=== PATIENT | male | born 1970 | race Caucasian/White ===

== ENCOUNTER 2019-10-06 15:52 | Emergency (ER) | payer OTHER ==
[2019-10-06] MEDS ORDERED: Sodium Chloride 0.9% 1,000 ML IV STA (16:14)
[2019-10-06] MEDS ORDERED: Sodium Chloride 0.9% 10 ML Syringe FLUSH PRN (16:14)
[2019-10-06] MEDS ORDERED: Ondansetron 4 MG/2 ML SDV IVPUSH ONE (16:14)
[2019-10-06] MEDS ORDERED: HYDROmorphone 1 MG/ML Syringe IVPUSH ONE (16:15)
[2019-10-06] MEDS ORDERED: Ketorolac 30 MG/ML SDV IVPUSH ONE (16:15)
[2019-10-06] MEDS ORDERED: Clindamycin Phosphate 900 MG in Sodium Chloride 0.9% 100 ML IV ONE (16:17)
--- NOTE | 2019-10-06 16:50 | EDM.PDOC ---
ED HPI GENERAL MEDICAL PROBLEM - General Chief Complaint: ENT Problem Stated Complaint: SWOLLEN THROAT Time Seen by Provider: 10/06/19 16:05 Source of Information: Reports: Patient History Limitations: Reports: No Limitations - History of Present Illness INITIAL COMMENTS - FREE TEXT/NARRATIVE: The patient presents with left sided throat and neck pain. He says this all started about 4 days ago with a tooth infection in the left lower jaw. He denies having a fever. He says he cannot eat or drink anything because of the pain. He has no cough, congestion, runny nose, abdominal pain, nausea or vomiting. He has no health problems. He was seen at the clinic in [place] and sent here for further work up. They felt he may need a CT of his neck. He says he does have a headache. Onset: Gradual Duration: Day(s): (4) Location: Reports: Neck, Other (throat) Quality: Reports: Sharp Severity: Severe Improves with: Reports: None Worsens with: Reports: None Associated Symptoms: Reports: Headaches. Denies: Chest Pain, Cough, Fever/ Chills, Nausea/Vomiting, Shortness of Breath Treatments [employer]: Reports: Other (see below) Other Treatments [employer]: took about 12 aleve within 8 hrs Left Neck Pain Score (Numeric/FACES): 9 - Related Data Allergies Allergy/AdvReac Type Severity Reaction Status Date / Time No Known Allergies Allergy Verified 10/06/19 16:04 Home Meds: Home Meds . [No Known Home Meds] 10/06/19 [History] Past Medical History Musculoskeletal History: Reports: Other (See Below) Other Musculoskeletal History: 32 foot fall and broke both feet, and shattered pelvis; collar bone, wrist and knocked out all teeth Social & Family History - Tobacco Use Smoking Status *Q: Never Smoker - Caffeine Use Caffeine Use: Reports: Coffee - Recreational Drug Use Recreational Drug Use: No ED ROS ENT - Review of Systems Review Of Systems: See Below Constitutional: Reports: No Symptoms HEENT: Reports: Dental Pain, Throat Pain Respiratory: Reports: No Symptoms Cardiovascular: Reports: No Symptoms Endocrine: Reports: No Symptoms GI/Abdominal: Reports: No Symptoms : Reports: No Symptoms Musculoskeletal: Reports: Neck Pain (Left anterior neck) Skin: Reports: No Symptoms ED EXAM, ENT - Physical Exam Exam: See Below Exam Limited By: No Limitations General Appearance: Alert, No Apparent Distress Ears: Normal External Exam, Normal Canal, Normal TMs Nose: Normal Inspection Mouth/Throat: Other (Mild edema and erythema. Pain upon palpation and edema to the left lower jaw.) Head: Atraumatic, Normocephalic Neck: Other (Pain upon palpation with edema and pain to the left anterior neck) Respiratory/Chest: No Respiratory Distress, Lungs Clear, Normal Breath Sounds Cardiovascular: Regular Rate, Rhythm, No Edema, No Murmur GI/Abdominal: Soft, Non-Tender, No Organomegaly, No Mass Course - Vital Signs Last Recorded V/S: Last Vital Signs Temp 100.3 F 10/06/19 16:03 Pulse 96 10/06/19 16:03 Resp 20 10/06/19 16:03 BP 125/86 10/06/19 16:03 Pulse Ox 97 10/06/19 16:03 - Orders/Labs/Meds Orders: Active Orders 24 hr Category Date Time Status Peripheral IV Care [RC] . DIRECTED Care 10/06/19 16:14 Active Soft Tissue Neck w Cont [CT] Stat Exams 10/06/19 16:15 Taken CULTURE BLOOD [BC] Stat Lab 10/06/19 16:38 Received CULTURE BLOOD [BC] Stat Lab 10/06/19 16:45 Received CULTURE STREP A CONFIRMATION [] Stat Lab 10/06/19 16:16 Results STREP SCRN A RAPID W CULT CONF [] Stat Lab 10/06/19 16:16 Results Sodium Chloride 0.9% [Saline Flush] Med 10/06/19 16:14 Active 10 ml FLUSH ASDIRECTED PRN Blood Culture x2 Reflex Set [OM.PC] Stat Oth 10/06/19 16:16 Ordered ED Antiemetic Medication Reflex [OM.PC] Stat Oth 10/06/19 16:14 Ordered Peripheral IV Insertion Adult [OM.PC] Stat Oth 10/06/19 16:14 Ordered Medication Orders Sodium Chloride (Saline Flush) 10 ml FLUSH ASDIRECTED PRN PRN Reason: Keep Vein Open Last Admin: 10/06/19 17:06 Dose: 10 ml Labs: Laboratory Tests 10/06/19 10/06/19 10/06/19 Range/Units 16:10 16:10 16:38 WBC 18.28 H (4.23-9.07) K/mm3 RBC 4.73 (4.63-6.08) M/mm3 Hgb 14.3 (13.7-17.5) gm/dl Hct 41.7 (40.1-51.0) % MCV 88.2 (79.0-92.2) fl MCH 30.2 (25.7-32.2) pg MCHC 34.3 (32.2-35.5) g/dl RDW Std Deviation 40.8 (35.1-43.9) fL Plt Count 258 (163-337) K/mm3 MPV 9.2 L (9.4-12.3) fl Neut % (Auto) 87.7 H (34.0-67.9) % Lymph % (Auto) 3.7 L (21.8-53.1) % [place] % (Auto) 8.3 (5.3-12.2) % Eos % (Auto) 0 L (0.8-7.0) Baso % (Auto) 0.0 L (0.1-1.2) % Neut # (Auto) 16.04 H (1.78-5.38) K/mm3 Lymph # (Auto) 0.68 L (1.32-3.57) K/mm3 [place] # (Auto) 1.51 H (0.30-0.82) K/mm3 Eos # (Auto) 0.00 L (0.04-0.54) K/mm3 Baso # (Auto) 0.00 L (0.01-0.08) K/mm3 Manual Slide Review Abnormal smear Sodium 134 L (136-145) mEq/L Potassium 3.7 (3.5-5.1) mEq/L Chloride 100 (98-107) mEq/L Carbon Dioxide 24 (21-32) mEq/L Anion Gap 13.7 (5-15) BUN 14 (7-18) mg/dL Creatinine 1.0 (0.7-1.3) mg/dL Est Cr Clr Drug Dosing 88.38 mL/min Estimated GFR (MDRD) > 60 (>60) mL/min BUN/Creatinine Ratio 14.0 (14-18) Glucose 134 H (74-106) mg/dL Lactic Acid 0.7 (0.4-2.0) mmol/L Calcium 8.7 (8.5-10.1) mg/dL Total Bilirubin 1.0 (0.2-1.0) mg/dL AST 24 (15-37) U/L ALT 37 (16-63) U/L Alkaline Phosphatase 65 (46-116) U/L Total Protein 7.3 (6.4-8.2) g/dl Albumin 3.4 (3.4-5.0) g/dl Globulin 3.9 gm/dL Albumin/Globulin Ratio 0.9 L (1-2) Meds: Medications Generic Name Dose Route Start Last Admin Trade Name Frenori PRN Reason Stop Dose Admin Sodium Chloride 10 ml 10/06/19 16:14 10/06/19 17:06 Saline Flush FLUSH 10 ml ASDIRECTED PRN Administration Keep Vein Open Discontinued Medications Generic Name Dose Route Start Last Admin Trade Name Tana PRN Reason Stop Dose Admin Clindamycin Phosphate Confirm 10/06/19 17:06 10/06/19 17:19 Cleocin Administered 10/06/19 17:07 Not Given Dose 900 mg .ROUTE .STK-MED ONE Hydromorphone HCl 1 mg 10/06/19 16:15 10/06/19 16:35 Dilaudid IVPUSH 10/06/19 16:16 1 mg ONETIME ONE Administration Sodium Chloride 1,000 mls @ 1,000 mls/hr 10/06/19 16:14 10/06/19 16:28 Normal Saline IV 10/06/19 17:13 1,000 mls/hr .BOLUS STA Administration Clindamycin Phosphate 900 mg/ 106 mls @ 200 mls/hr 10/06/19 16:17 10/06/19 17 :19 Sodium Chloride IV 10/06/19 16:48 Not Given ONETIME ONE Clindamycin Phosphate 900 mg/ 50 mls @ 100 mls/hr 10/06/19 17:13 10/06/19 17: 19 Premix IV 10/06/19 17:42 100 mls/hr ONETIME ONE Administration Iopamidol 80 ml 10/06/19 16:53 10/06/19 17:07 Isovue-300 (61%) IVPUSH 10/06/19 16:54 80 ml ONETIME ONE Administration Ketorolac Tromethamine 30 mg 10/06/19 16:15 10/06/19 16:31 Toradol IVPUSH 10/06/19 16:16 30 mg ONETIME ONE Administration Ondansetron HCl 4 mg 10/06/19 16:14 10/06/19 16:29 Zofran IVPUSH 10/06/19 16:15 4 mg ONETIME ONE Administration - Re-Assessments/Exams Free Text/Narrative Re-Assessment/Exam: 10/06/19 16:53 I ordered an IV NS, toradol 30mg IV, dilaudid 1mg IV, labs, blood cultures and a CT of his neck. 10/06/19 17:46 His WBC is elevated at 18.28. His Na is low at 134. His glucose is 134. His lactic acid is normal at 0.7. His CT shows a 52 X 25 X 20mm complex collection of gas and fluid involving the posterior left submandibular gland and the tissues posterior left submandibular gland suspect for abscess. No surgical intervention is reported. Infection with gas-forming organisms requires consideration. Extensive regional inflammatory changes as described. Mild airway compromise as described. I called [facility] in [place] and talked with Dr Mijares the ENT director of curriculum and instruction and he accepted the patient and I also talked with Dr Wilkerson at the ER. He will need to go by ambulance for I and D of the abscess and with antibiotics. Departure - Departure Time of Disposition: 18:05 Disposition: DC/Tfer to Acute Hospital 02 Condition: Serious Clinical Impression: Submandibular abscess - Discharge Information Referrals: PCP,None [Primary Care Provider] - Forms: ED Department Discharge Sepsis Event Note - Evaluation Sepsis Screening Result: No Definite Risk - Focused Exam Vital Signs: Vital Signs Temp Pulse Resp BP Pulse Ox 10/06/19 16:03 100.3 F 96 20 125/86 97 Date Exam was Performed: 10/06/19 Time Exam was Performed: 17:46 - My Orders Last 24 Hours: My Active Orders 10/06/19 16:14 Peripheral IV Care [RC] . DIRECTED Sodium Chloride 0.9% [Saline Flush] 10 ml FLUSH ASDIRECTED PRN ED Antiemetic Medication Reflex [OM.PC] Stat Peripheral IV Insertion Adult [OM.PC] Stat 10/06/19 16:15 Soft Tissue Neck w Cont [CT] Stat 10/06/19 16:16 CULTURE STREP A CONFIRMATION [RM] Stat STREP SCRN A RAPID W CULT CONF [RM] Stat Blood Culture x2 Reflex Set [OM.PC] Stat 10/06/19 16:38 CULTURE BLOOD [BC] Stat 10/06/19 16:45 CULTURE BLOOD [BC] Stat - Assessment/Plan Last 24 Hours: My Active Orders 10/06/19 16:14 Peripheral IV Care [RC] . DIRECTED Sodium Chloride 0.9% [Saline Flush] 10 ml FLUSH ASDIRECTED PRN ED Antiemetic Medication Reflex [OM.PC] Stat Peripheral IV Insertion Adult [OM.PC] Stat 10/06/19 16:15 Soft Tissue Neck w Cont [CT] Stat 10/06/19 16:16 CULTURE STREP A CONFIRMATION [RM] Stat STREP SCRN A RAPID W CULT CONF [RM] Stat Blood Culture x2 Reflex Set [OM.PC] Stat 10/06/19 16:38 CULTURE BLOOD [BC] Stat 10/06/19 16:45 CULTURE BLOOD [BC] Stat
[2019-10-06] MEDS ORDERED: Iopamidol 612 MG/ML 100 ML Bottle IVPUSH ONE (16:53)
[2019-10-06] MEDS ORDERED: Clindamycin Phosphate 900 MG/6 ML SDV ONE (17:06)
[2019-10-06] MEDS ORDERED: Clindamycin Phosphate in D5W 900 MG in Premix Bag 1 BAG IV ONE ×2 (17:13)
[2019-10-06] MEDS ORDERED: Sodium Chloride 0.9% 1,000 ML IV ONE (18:02)
--- NOTE | 2019-10-06 18:32 | CT ---
CT neck Technique: Multiple axial sections through the neck were obtained. Intravenous contrast was utilized. Comparison: No prior neck imaging is available. Findings: Soft tissue air and diffuse soft tissue thickening is seen within the left parapharyngeal soft tissues. This soft tissue density surrounds a portion of the left submandibular salivary gland. Superficial mildly enlarged lymph node is seen. Several other mildly enlarged lymph nodes are noted on the left side which are likely reactive. There is soft tissue density seen to extend medial to the cricoid cartilage compatible with additional soft tissue infection which slightly pushes the hypopharynx to the right side. Dental caries and root abscess is noted within the most posterior molar of the right mandible. Bone window settings shows mild degenerative change within the spine at C3-4, C4-5 and C5-6. Thyroid gland appears within normal limits. Visualized lung apices are clear. Parotid salivary glands are within normal limits. Visualized paranasal sinuses show nothing acute. There is diffuse clouding within the right mastoid sinus being seen. Impression: 1. Soft tissue air diffuse soft tissue thickening in the left parapharyngeal soft tissues surrounding the left submandibular salivary gland. Findings are suspicious for anaerobic infection given the soft tissue air if no intervention has been performed. There is soft tissue density compatible with additional infection which extends medial to the cricoid cartilage causing mild mass-effect upon the hypopharynx.. 2. Dental caries and probable tooth abscess on the right side within the posterior mandibular molar. 3. Incidental degenerative change within the cervical spine. 4. Diffuse clouding of the right mastoid sinuses which may be chronic or represent infection if patient has right-sided mastoid symptoms. Diagnostic code #5 This report was dictated in MDT I agree with preliminary report from [facility], finalized on 10/06/19, 6:33 PM Central Daylight Time
== END 2019-10-06 18:30 ==
LOC: JD.ED 15:52
DX: K12.2 Cellulitis and abscess of mouth (principal)
CPT/HCPCS: 36415; 70491; 80053; 83605; 85025; 87040; 87081; 87430; 96365; 96375; 99285; J1170; J1885; J2405; J3490; J7030; Q9967